=== PATIENT | female | born 1950 | race Caucasian/White ===

== ENCOUNTER 2019-07-13 18:48 | Inpatient (IN) ==
--- NOTE | 2019-07-13 20:09 | Diag Imaging Result Doc PS360 ---
CHEST-PORTABLE - 07/13/2019 INDICATION: stroke like symptoms COMPARISON: 05/18/2016 FINDINGS: There is increasing extrathoracic soft tissue density in the region of the left axilla. Correlate for possible adenopathy. Underlying this area in the left lung there is a pleural-based density that is similar to prior exams. There is a trace left pleural effusion versus pleural thickening also stable from prior. The right lung remains clear. Heart size remains borderline enlarged. IMPRESSION: 1. Increasing extrathoracic soft tissue density in the left axilla. Correlate for mass or adenopathy. 2. Other findings are stable. Electronically signed by Altaf Hassan 07/13/2019 8:07 PM
--- NOTE | 2019-07-13 20:32 | Diag Imaging Result Doc PS360 ---
CT HEAD W/O CONTRAST - 07/13/2019 INDICATION: stroke like symptoms COMPARISON: 07/08/2019 FINDINGS: The ventricles and sulci are normal in size and contour. There is no intracranial mass or hemorrhage. Stable moderately extensive cerebral white matter chronic microvascular ischemia. The skull is intact. The sinuses are clear. IMPRESSION: No acute disease or change from prior. This exam was performed using automated exposure control, adjustment of mA or kV according to patient size, and/or use of iterative reconstruction technique Electronically signed by Altaf Hassan 07/13/2019 8:30 PM
[2019-07-13 20:41] LABS: INR 1.4; PROTIME 17.4 Seconds (11.0-16.0); PTT 36.7 Seconds (22.3-41.8)
[2019-07-13 20:51] LABS: BASO# 0.01 X1000 (0.0-0.2); BASO% 0.3 % (0.0-0.8); EOS# 0.13 X1000 (0.0-0.7); EOS% 3.8 % (0.0-10.0); HEMATOCRIT 37.7 % (37.0-47.0); HEMOGLOBIN 12.6 g/dL (12.0-16.0); LYMPH# 0.58 X1000 (1.2-3.4); LYMPH% 17.1 % (20.5-51.1); MCH 31.7 PG (27-31); MCHC 33.4 g/dL (33-37); MONO# 0.29 X1000 (0.11-0.59); MONO% 8.6 % (1.7-9.3); MPV 10.8 FL (7.4-10.4); NEUT# 2.38 X1000 (1.4-6.5); NEUT% 70.2 % (42.2-75.2); PLT 37 X1000 (130-400); RBC 3.97 XMIL (4.2-5.4); WBC 3.39 X1000 (4.8-10.8)
[2019-07-13 21:10] LABS: AGAP 13; ALB/GLOB RATIO 1.4; ALBUMIN 3.5 g/dL (3.5-5.0); ALKALINE PHOSPHATASE 146 U/L (32-104); BUN 18 mg/dL (8-22); CALCIUM 9.4 mg/dL (8.8-10.2); CHLORIDE 105 mmol/L (98-107); COSMO 289; CREATININE 0.8 mg/dL (0.5-0.9); ESTIMATED GFR > 60; GLUCOSE 136 mg/dL (70-104); GOT 35 U/L (10-30); GPT 23 U/L (10-36); POTASSIUM 3.9 mmol/L (3.5-5.1); SODIUM 143 mmol/L (136-145); TCO2 25 mmol/L (25-35); TOTAL BILIRUBIN 3.74 mg/dL (0.20-1.00)
--- NOTE | 2019-07-13 22:18 | PROVIDER DOCUMENTATION ---
This chart was entered by Todd Hernandez Scribe, acting as scribe for Deny Sawyer MD. HPI-Neurological Disorder - General Chief Complaint: Altered Mental Status Stated Complaint: POSSIBLE STROKE Time Seen by Provider: 07/13/19 19:35 Source: patient, family, other (caregiver) Allergies/Adverse Reactions: Patient Allergies Allergy/AdvReac Type Severity Reaction Status Date / Time No Known Allergies Allergy Verified 07/08/19 23:55 Home Medications: Home Medication List Medication Instructions Recorded Confirmed Last Taken Type Escitalopram Oxalate [Lexapro] 10 mg PO DAILY 03/29/12 07/08/19 06/20/12 08:00 History Rifaximin [Xifaxan] 550 mg PO BID 03/29/12 07/08/19 06/20/12 22:00 History Ursodiol 300 mg PO QHS 03/29/12 07/08/19 06/20/12 22:00 History Vitamin A/C/D3/Cod Liver Oil [Kids 2,000 cap PO DAILY 03/29/12 07/09/19 06/20/12 09:00 History Cod Liver Oil +D Tab Chew] Calcium Carbonate/Vit D3 [Caltrate 1 each PO AC + HS #0 tablet 05/27/12 07/08/19 06/20/12 08:00 Rx 600 + D] 1 Digoxin [Lanoxin] 125 microgm PO QAM #0 tablet 05/27/12 07/08/19 06/20/12 08:00 Rx Escitalopram [Lexapro] 10 mg PO DAILY #0 tablet 05/27/12 07/09/19 06/20/12 08:00 Rx Levothyroxine [Synthroid] 100 microgm PO ACB #0 tablet 05/27/12 07/08/19 Unknown Rx Metoprolol [Lopressor] 25 mg PO Q8H #0 tablet 05/27/12 07/08/19 06/20/12 22:00 Rx Multivit,Fe,Ca,FA & Min [Thera M 1 each PO DAILY PRN PRN #0 tablet 05/27/12 07/08/19 06/20/12 09:00 Rx Plus] Lactulose 45 ml PO Q4H #30 udc 06/23/12 07/08/19 Unknown Rx Insulin Glargine,Hum.rec.anlog 10 units SUBQ QHS 07/08/19 07/09/19 Unknown History [Lantus Solostar] Iron,Carbonyl/Ascorbic Acid [Iron 1 tab PO DAILY 07/08/19 07/09/19 Unknown History 100-Vitamin C Tablet] Metformin [Glucophage] 500 mg PO DAILY 07/08/19 07/09/19 Unknown History - History of Present Illness-Neuro Nature of Presenting Problem: 68 yof presents to the ed w/ AMS. Caregiver states onset this morning found pt in floor pt has no idea she was in the floor, pt had used bathroom on herself, pt was slurring speech to point of not understanding conversation. Caregiver states approximately last normal mental status was last night. Caregiver states slurred speech has improved from this morning. Son states w/ discharge paperwork pt was seen in ed 07/09/19 for fall and was discharged w/ head concussion. Severity: reports: mild Onset/Duration: reports: this morning, last night Timing: reports: still present Context: reports: impaired speech Character of Altered Mental Status: reports: disoriented, confused. denies: combative Any recent trauma/injury?: reports: none New weakness or altered sensation location:: reports: none Cognitive Baseline: alert but confused Associated Symptoms: reports: confusion, slurred speech. denies: fever/chills, loss of consciousness, nausea, sleepy, vomiting Similar Symptoms Previously?: No Recently seen or treated by another doctor?: Yes (07/09/19 in [facility] ED for Fall) Review of Systems - Adult - REVIEW OF SYSTEMS - ADULT Constitutional: reports: no symptoms reported Eyes: reports: no symptoms reported Ears, Nose, Mouth & Throat: reports: no symptoms reported Cardiovascular: reports: no symptoms reported Respiratory: reports: no symptoms reported Gastrointestinal: denies: nausea, vomiting Genitourinary: reports: no symptoms reported Musculoskeletal: reports: no symptoms reported Integumentary: reports: no symptoms reported Neurological: reports: see HPI, slurred speech. denies: numbness, syncope Psychiatric: reports: no symptoms reported Endocrine: reports: no symptoms reported Hematologic/Lymphatic: reports: no symptoms reported Allergic/Immunologic: reports: no symptoms reported All Other Systems: Reviewed and Negative Past History - Adult - PAST MEDICAL HISTORY-ADULT Review of Records: reports: Old Records Reviewed, Nursing Assessment Review, Medications Reviewed, Social history reviewed & non-contributory. Major Childhood Illnesses: reports: denies history Cardiovascular: reports: HTN Respiratory: reports: denies history Gastrointestinal: reports: liver disease Obstetrical/Gynecological: reports: other (Lt breast cancer 02/2012) Genitourinary: reports: denies history Musculoskeletal: reports: denies history Neurological: reports: denies history Psychiatric: reports: denies history Endocrine/Immune: reports: denies history Other Conditions: reports: denies history - PRIOR SURGERIES/PROCEDURES Surgical/Procedure History: reports: other (mastectomy) - IMMUNIZATION STATUS Childhood Immunizations: See Nurse Assessment Flu Vaccine: See Nurse Assessment - FAMILY HISTORY Family History: reviewed, not pertinent - SOCIAL HISTORY Smoking: denies Substance Use: denies Physical Exam- Neurological - Physical Exam-Neuro Initial Vital Signs Reviewed: Yes General Appearance: alert, no apparent distress - Glascow Coma Scale Best Eye Response: (3) open to voice Best Verbal Response: (4) confused conversation Progress - PLAN OF CARE/RESULTS Progress/Plan/Lab Results: Vital Signs - 8 hr 07/13/19 18:52 07/13/19 19:49 07/13/19 20:32 Temperature 98.2 F Pulse Rate 81 75 79 Respiratory Rate 18 15 19 Blood Pressure 154/78 159/91 161/70 O2 Sat by Pulse Oximetry 99 100 99 07/13/19 21:02 07/13/19 21:32 Temperature Pulse Rate 77 79 Respiratory Rate 13 13 Blood Pressure 136/65 168/65 O2 Sat by Pulse Oximetry 100 100 Laboratory Results - last 24 hr 07/13/19 07/13/19 07/13/19 20:21 20:21 20:21 WBC 3.39 L RBC 3.97 L Hgb 12.6 Hct 37.7 MCV 95.0 MCH 31.7 H MCHC 33.4 RDW Std Deviation 16.0 H Plt Count 37 L* MPV 10.8 H Immature Gran % (Auto) 0.0 Neut % (Auto) 70.2 Lymph % (Auto) 17.[address] [place] % (Auto) 8.6 Eos % (Auto) 3.8 Baso % (Auto) 0.3 Immature Gran # (Auto) 0.00 Neut # (Auto) 2.38 Lymph # (Auto) 0.[address] [place] # (Auto) 0.29 Eos # (Auto) 0.13 Baso # (Auto) 0.01 PT 17.4 H INR 1.40 PTT (Actin FS) 36.7 Sodium 143 Potassium 3.9 Chloride 105 Carbon Dioxide 25 Anion Gap 13 BUN 18 Creatinine 0.8 Estimated GFR/1.73 m2 > 60 BUN/Creatinine Ratio 23 Glucose 136 H POC Glucose Calculated Osmolality 289 Calcium 9.4 Total Bilirubin 3.74 H AST 35 H ALT 23 Alkaline Phosphatase 146 H Ammonia Troponin T Total Protein 6.0 L Albumin 3.5 Globulin 2.5 Albumin/Globulin Ratio 1.4 07/13/19 07/13/19 07/13/19 20:21 20:21 20:36 WBC RBC Hgb Hct MCV MCH MCHC RDW Std Deviation Plt Count MPV Immature Gran % (Auto) Neut % (Auto) Lymph % (Auto) [place] % (Auto) Eos % (Auto) Baso % (Auto) Immature Gran # (Auto) Neut # (Auto) Lymph # (Auto) [place] # (Auto) Eos # (Auto) Baso # (Auto) PT INR PTT (Actin FS) Sodium Potassium Chloride Carbon Dioxide Anion Gap BUN Creatinine Estimated GFR/1.73 m2 BUN/Creatinine Ratio Glucose POC Glucose 128 H Calculated Osmolality Calcium Total Bilirubin AST ALT Alkaline Phosphatase Ammonia 56 H Troponin T < 0.010 Total Protein Albumin Globulin Albumin/Globulin Ratio Orders Category Date Time Status Cardiac Monitoring DIRECTED Care 07/13/19 19:36 Active Finger Stick Blood Sugar (ED) DIRECTED Care 07/13/19 19:36 Active Misc. NRSG Communication Order DIRECTED Care 07/13/19 19:36 Active Saline Loc NOW Care 07/13/19 19:36 Active CHEST-PORTABLE [RAD] Stat Exams 07/13/19 19:[address] HEAD W/O CONTRAST [CT] Stat Exams 07/13/19 19:36 Completed AMMONIA [CHEM] Stat Lab 07/13/19 20:21 Completed CBC WITH ELECTRONIC DIFF [HEME] Stat Lab 07/13/19 20:21 Completed COMPREHENSIVE METABOLIC PANEL [CHEM] Stat Lab 07/13/19 20:21 Completed OCCULT BLOOD SCREENING [STOOL] Stat Lab 07/13/19 19:42 Uncollected PROTIME WITH INR [COAG] Stat Lab 07/13/19 20:21 Completed PTT [COAG] Stat Lab 07/13/19 20:21 Completed TROPONIN T Stat Lab 07/13/19 20:21 Completed URINALYSIS W/POSS RFLX CULT [URINALYSIS] Stat Lab 07/13/19 19:36 Uncollected URINE DRUG SCREEN Stat Lab 07/13/19 19:36 Uncollected EKG [EKG] Stat Ther 07/13/19 19:36 Ordered Result Diagrams: 07/13/19 20:21 07/13/19 20:21 - EKG 1 Time of EKG reading by physician:: 19:10 EKG Read and Signed by:: Deny Sawyer EKG Interpretation (*Must complete 3 of following elements*): Abnormal Rate: 76 Rhythm: undetermind rhythm [place]: normal QRS: normal [place] Interval: normal ST Wave: normal Comments: Lt ventricular hypertrophy w/ repolarization abnormality - XRAY 1 XRAY Study: Chest Impression: See EMR Report ( CHEST-PORTABLE - 07/13/2019 INDICATION: stroke like symptoms COMPARISON: 05/18/2016 FINDINGS: There is increasing extrathoracic soft tissue density in the region of the left axilla. Correlate for possible adenopathy. Underlying this area in the left lung there is a pleural-based density that is similar to prior exams. There is a trace left pleural effusion versus pleural thickening also stable from prior. The right lung remains clear. Heart size remains borderline enlarged. IMPRESSION: 1. Increasing extrathoracic soft tissue density in the left axilla. Correlate for mass or adenopathy. 2. Other findings are stable. Electronically signed by Altaf Hassan 07/13/2019 8:07 PM 07/13/192006 Interpreting Physician: Altaf Hassan MD Dictated Date/Time: 07/13/192004 cc: Deny Sawyer MD; Alisha Mcclellan MD) - CT/MRI 1 CT Study: Head Impression: See EMR Report (CT HEAD W/O CONTRAST - 07/13/2019 INDICATION: stroke like symptoms COMPARISON: 07/08/2019 FINDINGS: The ventricles and sulci are normal in size and contour. There is no intracranial mass or hemorrhage. Stable moderately extensive cerebral white matter chronic microvascular ischemia. The skull is intact. The sinuses are clear. IMPRESSION: No acute disease or change from prior. This exam was performed using automated exposure control, adjustment of mA or kV according to patient size, and/or use of iterative reconstruction technique Electronically signed by Altaf Hassan 07/13/2019 8:30 PM 07/13/192029 Interpreting Physician: Altaf Hassan MD Dictated Date/Time: 07/13/192021 cc: Deny Sawyer MD; Alisha Mcclellan MD) - CONSULTS/PCP/HOSPITALIST Notification #1 *Consult/PCP/Hospitalist*: consult w/ Time Discussed: 21:58 Consult Disposition: Admit Departure - Departure Date of Disposition Decision: 07/13/19 Time of Disposition Decision: 22:17 DIAGNOSIS: Hepatic encephalopathy AMS (altered mental status) Qualifiers: Altered mental status type: unspecified Qualified Code(s): R41.82 - Altered mental status, unspecified Disposition: ADMITTED INPATIENT 09 Certified Medical Emergency: Emergent Condition: Stable Referrals and Follow-Ups: Alisha Mcclellan MD [Primary Care Provider] - - Critical Care Note This patient required my direct & personal management of CC.: No Attestation - Physician/ ABNER Attestation Patient care was provided by Advanced Practice Provider:: No The physician spent face to face time with patient:: Yes Advanced Practice Provider documentation review:: Supervising physician onsite and consulted in the evaluation and care of this patient. The physician did have a face to face encounter with the patient. - NIH Stroke Scale Level of Consciousness: 0-Alert This chart was documented by the indicated scribe, (Todd Hernandez, Dulceibfrancisco j) and accurately reflects the services I performed and decisions made by me, Deny Sawyer MD, as attested by the provider's signature.
--- NOTE | 2019-07-13 23:52 | EKG Report ---
Test Performed on : 07/13/2019 7:10:03 PM Test Reason : Stroke like symptoms Blood Pressure : / mmHG Vent. Rate : 076 BPM Atrial Rate : 072 BPM P-R Int : 000 ms QRS Dur : 104 ms QT Int : 428 ms P-R-T Axes : 000 073 -85 degrees QTc Int : 481 ms Undetermined rhythm Left ventricular hypertrophy with repolarization abnormality Abnormal ECG When compared with ECG of 13-JUL-2019 19:09, (Unconfirmed) Current undetermined rhythm precludes rhythm comparison, needs review Unconfirmed Result
[2019-07-14] MEDS: NS 1,000 ML IV SCH ×2 (01:00→13:57)
--- NOTE | 2019-07-14 01:56 | HISTORY AND PHYSICAL ---
PRIMARY CARE PHYSICIAN: Dr. Mcclellan. CHIEF COMPLAINT: Fall, confusion. HISTORY OF PRESENTING ILLNESS: A 68-year-old female with a history of cirrhosis, hepatitis C, diabetes mellitus type 2, pancytopenia, who had presented to the emergency department after she had a fall. She apparently was confused and did not know where she was. Her awning maker has stated that she was having some slurring of her speech also. She was evaluated in the emergency department. Due to presenting symptoms, she will need admission for further management. The patient is a poor historian. However, she denied any fever, chills, chest pain, shortness of breath or any weight changes. PAST MEDICAL HISTORY: Includes diabetes mellitus type 2, cirrhosis, hepatitis C, breast cancer, pancytopenia. PAST SURGICAL HISTORY: Hysterectomy, left mastectomy, thyroidectomy, tonsillectomy. ALLERGIES: No known drug allergies. CURRENT MEDICATIONS: Digoxin 125 mcg p.o. q.a.m., Lexapro 10 mg p.o. daily, Lantus 10 units subcutaneous at bedtime, lactulose 45 mL p.o. q.4 hours, levothyroxine 100 mcg p.o. daily, metformin 500 mg p.o. daily, metoprolol 25 mg p.o. q.8 hours, Xifaxan 550 mg p.o. b.i.d., ursodiol 300 mg p.o. at bedtime. SOCIAL HISTORY: No history of smoking, alcohol or illicit drug use. She lives alone. FAMILY HISTORY: No history of coronary artery disease. REVIEW OF SYSTEMS: Fourteen point review of system listed as in HPI. Other systems all negative. PHYSICAL EXAMINATION: GENERAL: The patient is resting comfortably now, but she is somewhat confused. VITAL SIGNS: Temperature 98.2 degrees, pulse 81, respiration 18, blood pressure 154/78. HEENT: Atraumatic, normocephalic. Extraocular movements intact. PERRLA. NECK: No masses. CHEST: Clear to auscultation. CARDIOVASCULAR: Regular rate and rhythm. ABDOMEN: Soft, positive bowel sounds. EXTREMITIES: No edema. NEUROLOGIC: She is awake, alert, oriented x2. GENITOURINARY: No bladder distention. SKIN: Warm. LABORATORIES AND STUDIES: WBC 3.39, hemoglobin 12.6, hematocrit 37.7, platelets 37,000. Sodium 143, potassium 3.9, chloride 105, CO2 is 25, BUN is 18, creatinine 0.8, glucose 136. Ammonia level is 56. CT of the head, no acute disease. ASSESSMENT: This is a 68-year-old female with a history of cirrhosis, diabetes mellitus type 2, hypertension and pancytopenia, who had presented to emergency department with 1- day history of worsening confusion. Apparently, patient had a fall and she was incoherent after that. She was brought to the emergency department where she improved and, however, due to presenting symptoms she will need admission for further management. 1. Altered mental status. 2. Hepatic encephalopathy. 3. Cirrhosis. 4. Diabetes mellitus type 2. 5. Hypertension. PLAN: 1. We will admit patient to medical floor with telemetry. 2. We will continue with neuro checks. 3. We will continue with lactulose. 4. We will monitor blood glucose closely. Put patient on sliding scale insulin regimen. 5. Monitor blood pressure. Resume antihypertensive agent. 6. We will put patient on DVT prophylaxis with SCDs. 7. We will continue to follow, reassess and make further recommendation based on patient's clinical course. cc: Giacomo Ardon MD MTDD
[2019-07-14 06:04] LABS: URINE SOURCE CATH
[2019-07-14 06:06] LABS: BILIRUBIN URINE NEGATIVE (NEGATIVE); BLOOD URINE NEGATIVE (NEGATIVE); COLOR ORANGE; GLUCOSE URINE 70 mg/dL (NEGATIVE); KETONE URINE TRACE mg/dL (NEGATIVE); LEUKOCYTES URINE MODERATE (NEGATIVE); NITRITE URINE NEGATIVE (NEGATIVE); PROTEIN URINE TRACE mg/dL (NEGATIVE); SP GRAVITY URINE 1.023; TURBIDITY URINE HAZY (CLEAR); UROBILINOGEN URINE 3 mg/dL (NORMAL)
[2019-07-14 06:08] LABS: UR EPITHELIAL CELLS <10 /HPF (<10); URINE BACTERIA 4+ /HPF; URINE RBC <10 /HPF (<10); URINE WBC 20-40 /HPF (<10)
[2019-07-14 06:31] LABS: UR AMPHETAMINES QUAL NONE DETECTED (NONE DETECT); UR BARBITUATES QUAL NONE DETECTED (NONE DETECT); UR BENZODIAZEPIN QUAL NONE DETECTED (NONE DETECT); UR CANNABINOIDS QUAL NONE DETECTED (NONE DETECT); UR COCAINE QUAL NONE DETECTED (NONE DETECT); UR METHADONE QUAL NONE DETECTED (NONE DETECT); UR OPIATES QUAL NONE DETECTED (NONE DETECT); UR OXYCODONE QUAL NONE DETECTED (NONE DETECT); UR PCP QUAL NONE DETECTED (NONE DETECT)
[2019-07-14 06:33] LABS: URINE CASTS NONE SEEN; URINE CRYSTALS NONE SEEN; URINE SMALL ROUND CELLS NONE SEEN; URINE YEAST NONE SEEN
[2019-07-14] MEDS: HUMULIN R SUBQ SCH ×4 (06:45→21:46)
[2019-07-14 07:47] LABS: EOS# 0.07 X1000 (0.0-0.7); EOS% 3.4 % (0.0-10.0); HEMATOCRIT 32.3 % (37.0-47.0); HEMOGLOBIN 10.6 g/dL (12.0-16.0); LYMPH# 0.56 X1000 (1.2-3.4); LYMPH% 26.9 % (20.5-51.1); MCH 31.6 PG (27-31); MCHC 32.8 g/dL (33-37); MCV 96.4 FL (81-99); MONO# 0.26 X1000 (0.11-0.59); MONO% 12.5 % (1.7-9.3); MPV 12.3 FL (7.4-10.4); NEUT# 1.19 X1000 (1.4-6.5); NEUT% 57.2 % (42.2-75.2); RBC 3.35 XMIL (4.2-5.4); RDW 16.1 % (11.5-14.5); WBC 2.08 X1000 (4.8-10.8)
[2019-07-14 07:48] LABS: PLT 35 X1000 (130-400)
[2019-07-14 08:02] LABS: AGAP 9; BUN 19 mg/dL (8-22); CALCIUM 8.9 mg/dL (8.8-10.2); CHLORIDE 108 mmol/L (98-107); COSMO 289; CREATININE 0.8 mg/dL (0.5-0.9); ESTIMATED GFR > 60; GLUCOSE 205 mg/dL (70-104); POTASSIUM 3.6 mmol/L (3.5-5.1); SODIUM 141 mmol/L (136-145); TCO2 24 mmol/L (25-35)
[2019-07-14] MEDS: LACTULOSE PO SCH ×3 (10:31→18:42)
[2019-07-14] MEDS: LOPRESSOR PO SCH ×2 (16:43→23:50)
[2019-07-14] MEDS: LANOXIN PO SCH (16:43)
[2019-07-14] MEDS ORDERED: ROCEPHIN 1 GM in NS 50 ML IV SCH (18:30)
[2019-07-14] MEDS: ACTIGALL PO SCH (21:52)
[2019-07-14] MEDS: XIFAXAN PO SCH (21:52)
--- NOTE | 2019-07-14 23:22 | PROGRESS NOTE ---
DATE: 07/14/2019 INTERVAL HISTORY: Ms. Oliver was admitted overnight after a mechanical fall and altered mental status; however, in the emergency room she was alert and oriented x3. No other acute overnight events. OBJECTIVE: Vital signs: Currently temperature 98.4 degrees, pulse 64, respirations 16, blood pressure 130/79, saturating 99% on room air. On physical examination, not in acute distress. Oral cavity is moist. Air entry bilaterally equal. No wheeze, rhonchi or crackles. S1, S2 normal. No murmur, rub or gallop. Abdomen is soft. She has caput medusae affecting abdominal wall. No tenderness. No lower extremity edema. She is alert and oriented x3 at the moment. LABORATORY DATA: Labs suggestive of pancytopenia, normal kidney function, hyperglycemia. Her ammonia level was elevated to 56. She does have chronically elevated bilirubin. Microbiology: Urine culture was in lab; however, the patient did not complain of any symptoms, though she does have pyuria. DIAGNOSTIC DATA: Head CT overnight did not have any acute pathology. ASSESSMENT: 1. Acute encephalopathy on presentation after mechanical fall. It could be just in the setting of hepatic encephalopathy. 2. History of chronic hepatitis C and cirrhosis. 3. History of noninsulin-dependent diabetes mellitus type 2. 4. Essential hypertension. PLAN: Her mental status appears to be improving. My plan is to stop intravenous fluids. Continue her home medication, including lactulose for hepatic encephalopathy. If she continues to do better, my plan is to discharge her home tomorrow. She has had only one bowel movement so far, and I will continue lactulose 30 mL dose t.i.d. Plan of care discussed with her. Her questions have been answered. I am also awaiting urine culture results, as it is possible that acute cystitis caused her hepatic encephalopathy to worsen, which could have precipitated this event. cc: Drake Jerez MD MTDD
[2019-07-15] MEDS: ACTIGALL PO SCH ×2 (05:02→13:26)
[2019-07-15] MEDS ORDERED: SYNTHROID PO SCH (07:00)
[2019-07-15] MEDS: HUMULIN R SUBQ SCH ×2 (07:11→12:00)
[2019-07-15] MEDS: LOPRESSOR PO SCH ×2 (07:12→15:55)
[2019-07-15] MEDS: LACTULOSE PO SCH ×2 (08:37→13:26)
[2019-07-15] MEDS: LANOXIN PO SCH (08:37)
[2019-07-15] MEDS: XIFAXAN PO SCH (08:37)
[2019-07-15] MEDS ORDERED: LEXAPRO PO SCH (09:00)
[2019-07-15] MEDS ORDERED: ICAR-C PO SCH (09:00)
[2019-07-15 15:17] VITALS: BP 142/62
--- NOTE | 2019-07-16 07:27 | DISCHARGE SUMMARY ---
ADMISSION DATE: 07/13/2019 DISCHARGE DATE: 07/15/2019 DISCHARGE DISPOSITION: Home. DISCHARGE CONDITION: Hemodynamically stable. She is alert and oriented x3. She does not have any confusion. She has had 2 bowel movements. DISCHARGE DIAGNOSES: 1. Acute encephalopathy, likely due to hepatic encephalopathy. 2. Chronic hepatitis C and cirrhosis. 3. History of noninsulin-dependent diabetes mellitus type 2. 4. Essential hypertension. 5. History of pancytopenia. DISCHARGE MEDICATIONS: 1. Insulin glargine 10 units at nighttime, though it was not reconciled. 2. Ursodiol 300 mg every 8 hours. 3. Multivitamin with minerals 1 tablet daily. 4. Metformin 500 mg daily. 5. Iron tablets 1 tablet daily. 6. Lexapro 10 mg daily. 7. Methylphenidate 2.5 mg daily. 8. Levothyroxine 75 mcg with meals. 9. Rifaximin 550 mg b.i.d. 10. Lactulose 45 mL every 4 hours. 11. Digoxin 125 mcg in the morning time. 12. Metoprolol 25 mg every 8 hours. PHYSICAL EXAMINATION: Vital Signs: At the time of her discharge, temperature 98.2 degrees, pulse 70, respiratory rate 16, blood pressure 160/68, saturating 100% room air. General: Not in acute distress. HEENT: Oral cavity is moist. Lungs: Air entry bilaterally equal. No wheeze, rhonchi, crackles. Heart: S1, S2 normal. No murmur or gallop. Abdomen: Soft, nontender. She has prominent caput medusae. Extremities: She does not have any lower extremity edema. Neurologic: She is alert and oriented x3. LABORATORY DATA DURING HOSPITAL ADMISSION AND DISCHARGE: WBC 2000, hemoglobin 10.6, platelets 35,000. INR 1.4. BUN 18, creatinine 0.8. Total bilirubin of 3.7. Ammonia of 56. Urinalysis had 20 to 40 WBC. However, the patient did not have frequency, urgency, nocturia, or burning, so she was asymptomatic and it was decided not to treat her. MICROBIOLOGY: Urine culture was pending. SIGNIFICANT IMAGING DURING HOSPITAL ADMISSION: 1. Chest x-ray on admission had increasing extrathoracic soft tissue density in the left axilla, and it was told to correlate with mass or adenopathy. 2. Head CT did not have any evidence of acute disease from prior. HOSPITAL COURSE SUMMARY: Ms. Melody is a 68-year-old lady who had initially presented on 07/09/2019 after a fall and facial injuries, and a CT scan of the head was performed. The patient had said that she had lost her balance and had fell forward, impacting her head on the counter. She did not have any loss of consciousness or seizure activity, and she had bruising of her left eye. However, in the emergency room, head CT was unremarkable, and she was discharged home. However, she came back on 07/13/2019 with chief complaints of confusion. Apparently, caregiver had also noticed some slurring of her speech. In the emergency department, however, by the time she presented, she was alert and she was able to answer all the questions. Caregiver stated that the patient was found on the floor, and the patient did not have any idea about why she was on the floor. She had used the bathroom on herself, and she had slurring of her speech. However, all of these symptoms had resolved when she came to the hospital. She was admitted for observation. Head CT was unremarkable. She was started on lactulose, following which she had a bowel movement, since her ammonia level was elevated to 53. With treatment, her mental status remained unchanged, and she remained alert and oriented x3, so we decided to discharge her on her home medication. It was thought that her presentation was because of hepatic encephalopathy, and she was advised to continue to take lactulose since she did admit that she often times would get constipated and may not have a bowel movement for a day or two. She was advised to have followup with outpatient providers. TIME SPENT: More than 30 minutes of time were spent in discharging this patient. cc: Drake Jerez MD
== END 2019-07-15 16:01 | disposition home or self-care (01) | DRG 442 ==
LOC: ED 18:48 → SUATTDRO 23:52 → 4N 23:52
PROVIDERS: ATTEND Internal Medicine